=== PATIENT | female | born 1940 | race Caucasian/White ===

== ENCOUNTER 2023-09-03 07:11 | Emergency (ER) | payer MEDICARE ==
[2023-09-03 08:16] LABS: #Basophils 0.05 10x3/uL (0.0-0.2); #Eosinphils 0.06 10x3/uL (0.0-0.5); #Monocytes 0.63 10x3/uL (0.0-1.1); #Neutrophils 6.08 10x3/uL (1.5-8.4); %Basophils 0.6 % (0.0-2.0); %Eosinophils 0.7 % (0.0-6.0); %Lymphocytes 22.4 % (18.0-47.0); %Monocytes 7.2 % (0.0-10.0); %Neutrophils 68.9 % (40.0-75.0); Hematocrit 43.9 % (34.9-44.5); Hemoglobin 14.8 g/dL (12.0-15.5); Mean Corpuscular HGB CONC 33.7 g/dL (32.0-36.0); Mean Corpuscular Hemoglobin 32.9 pg (27.0-33.0); Mean Corpuscular Volume 97.6 fL (81.6-98.3); Mean Platelet Volume 8.8 fL (7.4-10.4); Platelet Count 310 10x3/uL (150-450); RBC Distribution Width 13.2 % (11.5-14.5); White Blood Cell (WBC) Count 8.8 10x3/uL (3.5-10.5)
[2023-09-03 08:27] LABS: INR-International Normal Ratio 1.1; PTT 26.1 sec (22.0-33.0); Prothrombin Time 12.2 sec (9.5-12.1)
[2023-09-03 08:33] LABS: ALT (SGPT) 10 U/L (8-55); AST (SGOT) 17 U/L (5-34); Albumin 3.8 g/dL (3.4-4.8); Alkaline Phosphatase 59 U/L (40-110); Anion Gap 11 mmol/L (10-20); BUN (Urea Nitrogen) 15 mg/dL (9.8-20.1); Calc. Creatinine Clearance 0 mL/min (70-130); Calcium 9.6 mg/dL (7.8-10.44); Carbon Dioxide 25 mmol/L (23-31); Chloride 105 mmol/L (98-107); Estimated GFR 46; Globulin 2.6 g/dL (2.4-3.5); Glucose 92 mg/dL (83-110); Magnesium 2.1 mg/dL (1.6-2.6); Protein, Total 6.4 g/dL (5.8-8.1); Sodium 137 mmol/L (136-145)
[2023-09-03 08:36] LABS: Troponin I Less than 0.010 ng/mL (< 0.028)
[2023-09-03 09:04] LABS: Bilirubin Neg (Negative); Blood, Urine Negative (Negative); Clarity Clear (Clear); Glucose, Urine (Dipstick) Normal (Negative); Ketone, Urine Negative (Negative); Leukocyte 25 (Negative); Nitrite Negative (Negative); Protein, Urine (Dipstick) 15 mg/dl (Neg-Trace); Urobilinogen Normal mg/dL (Less than 2)
[2023-09-03 09:14] LABS: CAUTI Indications for Culture Alt mental st,lethar; RBC/HPF 0-3 HPF (0-3); Squamous Epithelial 0-3 HPF (0-3); WBC/HPF 0-3 HPF (0-3)
[2023-09-03 09:15] LABS: Bacteria/HPF None Seen HPF (None Seen)
[2023-09-03 09:16] LABS: Urine Culture Reflex No No
[2023-09-03] MEDS ORDERED: Lorazepam 2 MG/ML VIAL ONE (14:25)
== END 2023-09-03 14:35 | disposition home or self-care (01) ==
LOC: CSHERS 07:11
DX: F03.90 Unspecified dementia, unspecified severity, without behavioral disturbance, psychotic disturbance, mood disturbance, and anxiety (principal); I25.10 Atherosclerotic heart disease of native coronary artery without angina pectoris; I48.91 Unspecified atrial fibrillation; E03.9 Hypothyroidism, unspecified; Z79.01 Long term (current) use of anticoagulants; Z79.899 Other long term (current) drug therapy
CPT/HCPCS: 70450; 71045; 81001; 83735; 83880; 84484; 85610; 85730; 93005; J2060; 80053; 84443; 85025; 96374

== ENCOUNTER 2023-09-04 11:43 | Emergency (ER) | payer MEDICARE ==
[2023-09-04 12:49] LABS: #Basophils 0.03 10x3/uL (0.0-0.2); #Eosinphils 0.03 10x3/uL (0.0-0.5); #Monocytes 0.55 10x3/uL (0.0-1.1); #Neutrophils 6.57 10x3/uL (1.5-8.4); %Basophils 0.3 % (0.0-2.0); %Eosinophils 0.3 % (0.0-6.0); %Lymphocytes 20.2 % (18.0-47.0); %Monocytes 6.1 % (0.0-10.0); %Neutrophils 72.8 % (40.0-75.0); Hematocrit 47.3 % (34.9-44.5); Hemoglobin 15.9 g/dL (12.0-15.5); Mean Corpuscular HGB CONC 33.6 g/dL (32.0-36.0); Mean Corpuscular Hemoglobin 33.1 pg (27.0-33.0); Mean Corpuscular Volume 98.3 fL (81.6-98.3); Mean Platelet Volume 8.9 fL (7.4-10.4); Platelet Count 314 10x3/uL (150-450); Red Blood Cell (RBC) Count 4.81 10x6/uL (3.90-5.03)
[2023-09-04 13:07] LABS: ALT (SGPT) 10 U/L (8-55); AST (SGOT) 18 U/L (5-34); Acetaminophen Less than 10 mcg/mL (10.0-30.0); Albumin 3.9 g/dL (3.4-4.8); Alcohol Less than 10.0 mg/dL (Less than 10); Alkaline Phosphatase 62 U/L (40-110); Anion Gap 10 mmol/L (10-20); BUN (Urea Nitrogen) 12 mg/dL (9.8-20.1); Bilirubin, Total 1.1 mg/dL (0.2-1.2); CK (CPK) 46 U/L (29-168); Calc. Creatinine Clearance 0 mL/min (70-130); Calcium 9.7 mg/dL (7.8-10.44); Carbon Dioxide 28 mmol/L (23-31); Chloride 103 mmol/L (98-107); Estimated GFR 50; Globulin 2.8 g/dL (2.4-3.5); Glucose 87 mg/dL (83-110); Protein, Total 6.7 g/dL (5.8-8.1); Salicylate Less than 8.0 mg/dL (15.0-30.0); Sodium 137 mmol/L (136-145)
[2023-09-04 13:10] LABS: Troponin I Less than 0.010 ng/mL (< 0.028)
[2023-09-04 13:46] LABS: Bilirubin Neg (Negative); Blood, Urine 10 (Negative); Clarity Clear (Clear); Glucose, Urine (Dipstick) Normal (Negative); Ketone, Urine Negative (Negative); Leukocyte 25 (Negative); Nitrite Negative (Negative); Protein, Urine (Dipstick) 15 mg/dl (Neg-Trace); Specific Gravity, Urine 1.015 (1.005-1.030); Urobilinogen Normal mg/dL (Less than 2); pH, Urine 6.5 (5.0-9.0)
[2023-09-04 13:56] LABS: Amphetamine Not Detected (NotDetected); Barbiturates Screen Not Detected (NotDetected); Benzodiazepine Screen Detected (NotDetected); Cocaine Metabolite Screen Not Detected (NotDetected); Methadone Not Detected (NotDetected); Methamphetamine Not Detected (NotDetected); Opiate Screen Not Detected (NotDetected); Oxycodone Screen Not Detected (NotDetected); Phencyclidine (PCP) Not Detected (NotDetected); THC/Cannabinoid Screen Not Detected (NotDetected); Tricyclic Screen Not Detected (NotDetected)
[2023-09-04 14:02] LABS: Bacteria/HPF Rare-Few HPF (None Seen); CAUTI Indications for Culture Alt mental st,lethar; Squamous Epithelial 0-3 HPF (0-3); Transitional Epithelial 0-3 HPF (None Seen); WBC/HPF 0-3 HPF (0-3)
[2023-09-04 14:03] LABS: Urine Culture Reflex No No
== END 2023-09-04 21:57 ==
LOC: CSHERS 11:43
DX: F03.90 Unspecified dementia, unspecified severity, without behavioral disturbance, psychotic disturbance, mood disturbance, and anxiety (principal)
CPT/HCPCS: 36415; 71045; 80053; 80306; 80307; 81001; 82550; 83605; 83880; 84443; 84484; 85025; 87040; 93005